=== PATIENT | female | born 1955 | race Caucasian/White ===

== ENCOUNTER 2023-10-18 08:51 | Day surgery (SDC) | payer MEDICARE, MEDICAID ==
[~2023-10-18] VITALS: Ht 157.5 cm; Wt 61.2 kg
[~2023-10-18 08:51] MED LIST: ARMOUR THYROID15 MG PO; EXCEDRIN TENSION HEA PO; NEXIUM40 M1 PO
[2023-10-18] MEDS ORDERED: LACTATED RINGER'S 1,000 ML IV ONE ×2 (08:54→10:19)
[2023-10-18] MEDS ORDERED: ceFAZolin Sodium 2 GM/VIAL SDV ONE (08:54)
[2023-10-18] MEDS ORDERED: FAMOTIDINE 10MG/ML 2ML SDV IV ONE (08:54)
[2023-10-18] MEDS ORDERED: SODIUM CHLORIDE 0.9% 100 ML IV ONE (08:55)
[2023-10-18] MEDS ORDERED: LIDOcaine HCl 1% (Local Anesth.) 20 ML VIAL ONE (09:16)
[2023-10-18] MEDS ORDERED: SODIUM CHLORIDE 0.9% 1,000 ML IV ONE (09:16)
[2023-10-18] MEDS ORDERED: STERILE WATER FOR IRRIGATION 1,000 ML BTL IR ONE (09:16)
[2023-10-18] MEDS ORDERED: SUCCINYLCHOLINE CHLORIDE 20 MG/ML 10ML VIAL IV ONE (10:00)
[2023-10-18] MEDS ORDERED: PROPOFOL 200 MG/20 ML VIAL IV ONE (10:00)
[2023-10-18] MEDS ORDERED: SUGAMMADEX SODIUM 200 MG/2 ML SDV IV ONE (10:00)
[2023-10-18] MEDS ORDERED: LIDOCAINE HCL 2% 2ML SDV IV ONE (10:00)
[2023-10-18] MEDS ORDERED: ROCURONIUM BROMIDE 10 MG/ML 5ML VIAL IV ONE (10:00)
[2023-10-18] MEDS ORDERED: PERCOCET 5/325M1 TAB PO (11:09)
[2023-10-18] MEDS ORDERED: ACETAMINOPHEN 100 ML IV ONE (11:32)
[2023-10-18] MEDS ORDERED: KETOROLAC TROMETHAMINE 30 MG/ML SDV ONE (11:32)
[2023-10-18] MEDS ORDERED: ONDANSETRON HCl 4 MG/2 ML SDV ONE (12:05)
[2023-10-18] MEDS ORDERED: SODIUM CHLORIDE 0.9% 10 ML SYR ONE (12:08)
[2023-10-18 12:22] VITALS: BP 157/83
== END 2023-10-18 12:35 | disposition home or self-care (01) ==
LOC: ORM 08:51
PROVIDERS: ATTEND Surgery
PROC: 0FT44ZZ Resection of Gallbladder, Percutaneous Endoscopic Approach (ICD-10-PCS; principal; 2023-10-18)
DX: K80.10 Calculus of gallbladder with chronic cholecystitis without obstruction (principal)
CPT/HCPCS: J0131; J0690